=== PATIENT | female | born 2000 | race Two or more races ===

== ENCOUNTER 2024-11-26 19:56 | Emergency (ER) | payer SELFPAY ==
[~2024-11-26] VITALS: Ht 165.1 cm; Wt 78.9 kg
[2024-11-26 20:45] LABS: BASOPHILS % (AUTO) 0.3 % (0.0-2.0); EOSINOPHILS # (AUTO) 0.1 K/uL (0.0-0.7); EOSINOPHILS % (AUTO) 1.2 % (0.0-7.0); HEMOGLOBIN 13.7 g/dL (10.9-14.3); LYMPHOCYTES # (AUTO) 3.1 K/uL (0.8-4.8); LYMPHOCYTES % (AUTO) 41.9 % (20.5-51.5); MEAN CORPUSCULAR HEMOGLOBIN 30.1 uug (24.7-32.8); MEAN CORPUSCULAR HGB CONC 34 g/dL (32.3-35.6); MONOCYTES # (AUTO) 0.5 K/uL (0.1-1.30); MONOCYTES % (AUTO) 7.2 % (0.0-11.0); NEUTROPHILS # (AUTO) 3.6 K/uL (1.8-8.9); NEUTROPHILS % (AUTO) 49.4 % (38.5-71.5); PLATELET COUNT (AUTO) 268 K/uL (179-408); RED BLOOD CELL COUNT(AUTO) 4.54 MIL/uL (3.63-4.92); RED CELL DISTRIBUTION WIDTH 12.8 % (12.3-17.7); WHITE BLOOD COUNT (AUTO) 7.3 K/uL (3.8-11.8)
[2024-11-26] MEDS: IV NORMAL SALINE 1000 ML BAG IV ONE (20:49)
[2024-11-26 20:50] LABS: DIFFERENTIAL COMMENT 1
[2024-11-26] MEDS ORDERED: ONDANSETRON ODT 4 MG TAB.RAPDIS ONE (20:50)
[2024-11-26] MEDS ORDERED: MECLIZINE HCL 25 MG TABLET ONE (20:50)
[2024-11-26 20:51] LABS: CALCIUM 8.9 mg/dL (8.5-10.1); CREATININE 0.6 mg/dL (0.6-1.3); POTASSIUM 3.2 mmol/L (3.5-5.1)
[2024-11-26] MEDS: MECLIZINE HCL 25 MG TABLET PO ONE (20:52)
[2024-11-26] MEDS: ONDANSETRON ODT 4 MG TAB.RAPDIS SL ONE (20:52)
[2024-11-26 20:57] LABS: ALBUMIN 3.9 g/dL (3.4-5.0); BILIRUBIN,DIRECT 0.1 mg/dL (0.0-0.2); BILIRUBIN,TOTAL 0.2 mg/dL (0.2-1.0); TOTAL PROTEIN, SERUM 7.7 g/dL (6.4-8.2)
[2024-11-26] MEDS ORDERED: POTASSIUM CHLORIDE 20 MEQ TAB.PRT.SR ONE (21:30)
[2024-11-26] MEDS: POTASSIUM CHLORIDE 20 MEQ TAB.PRT.SR PO ONE (21:36)
[2024-11-26 21:38] VITALS: BP 122/68; O2SAT 96
== END 2024-11-26 21:38 | disposition home or self-care (01) ==
LOC: ER 20:01 → EDBD 20:01 → ER 21:38
DX: R53.1 Weakness (principal); R42 Dizziness and giddiness; R10.2 Pelvic and perineal pain; F17.210 Nicotine dependence, cigarettes, uncomplicated
CPT/HCPCS: 99284; 96360; 96361; 99406; 80076; 80048; 85025; 84702; 36415; 93005; J7040; A4606; A4663; J8597; Q0162